=== PATIENT | female | born 1960 | race Caucasian/White ===

== ENCOUNTER 2016-11-30 09:30 | Emergency (ER) | payer BC ==
--- NOTE | 2016-11-30 09:44 | UC ---
UC General HPI - HPI Summary HPI Summary: Patient is here with sudden onset right shoulder pain, hurts to breath, denies any injury or trauma, cannot touch the pain, hx of smoking, is suppose to take bystolic but has not is a while. - History of Current Complaint Stated Complaint: DIZZINESS,RIGHT SHOULDER PAIN,DIFFICULTY BREATHING Time Seen by Provider: 11/30/16 09:38 Hx Obtained From: Patient Onset/Duration: Sudden Onset, Lasting Hours Timing: Constant Onset Severity: Severe Current Severity: Severe - Allergy/Home Medications Allergies/Adverse Reactions: Allergies Allergy/AdvReac Type Severity Reaction Status Date / Time Latex Allergy Itching Verified 11/30/16 09:37 Sulfa Antibiotics Allergy Hives Verified 11/30/16 09:37 Tetracycline Allergy Hives Verified 11/30/16 09:37 PMH/Surg Hx/FS Hx/Imm Hx Previously Healthy: Yes - Surgical History Surgical History: Yes Surgery Procedure, Year, and Place: ectopic , miscarriages - Family History Known Family History: Positive: None, Hypertension - Social History Alcohol Use: None Substance Use Type: Excessive Caffeine Substance Use Comment - Amount & Last Used: a couple pots of coffee daily Smoking Status (MU): Current Every Day Smoker Type: Cigarettes Amount Used/How Often: 1 1/2 PPD Length of Time of Smoking/Using Tobacco: 37 YRS Have You Smoked in the Last Year: Yes Review of Systems Constitutional: Negative Skin: Negative Eyes: Negative ENT: Negative Respiratory: Shortness Of Breath Cardiovascular: Negative Gastrointestinal: Negative Genitourinary: Negative Motor: Negative Neurovascular: Negative Musculoskeletal: Negative Neurological: Other - dizzyness Psychological: Negative Is Patient Immunocompromised?: No All Other Systems Reviewed And Are Negative: Yes Physical Exam Triage Information Reviewed: Yes Appearance: Well-Appearing, Well-Nourished, Pain Distress Vital Signs Reviewed: Yes Eye Exam: Normal ENT Exam: Normal ENT: Positive: Hearing grossly normal, Pharynx normal, TMs normal Dental Exam: Normal Neck exam: Normal Respiratory Exam: Normal Respiratory: Positive: Chest non-tender, Lungs clear, Decreased breath sounds - in right base Cardiovascular Exam: Normal Cardiovascular: Positive: RRR, No Murmur, Pulses Normal Abdominal Exam: Normal Abdomen Description: Positive: Nontender, No Organomegaly, Soft Bowel Sounds: Positive: Present Musculoskeletal Exam: Normal Musculoskeletal: Positive: Strength Intact, ROM Intact, No Edema, Other: - shoulder ROM intact, cannot replicate or palpate pain areas Psychological Exam: Normal Skin Exam: Normal Course/Dx - Course Course Of Treatment: hx obtained, exam performed ,meds reviewed, VS are stable, pain cannot be relicated with movement or palpated, she is complaining of dizzyness and dyspnea, Chest xray ordered, significant for COPD, no acute infection. pain and dizzyness have subsided while waiting for xray, some palpable tenderness over the teres minor, ROM intact. no abdominal tenderness. educated on COPD, patient refused inhalers, I did prescribed some prednisone for her breathing she states she may or maynot take it. refused any pain medication at this time. - Differential Dx - Multi-Symptom Provider Diagnoses: muscle spasm of right teres minor. COPD Discharge - Discharge Plan Condition: Stable Disposition: HOME Prescriptions: predniSONE TAB* [Deltasone TAB*] 40 mg PO DAILY #14 tab Patient Education Materials: Muscle Strain (ED), COPD (Chronic Obstructive Pulmonary Disease) (ED) Referrals: No Primary Care Phys,NOPCP [Primary Care Provider] - Additional Instructions: 1. Warm compresses to the scapular area and tylenol for pain management. 2. You do have COPD and I recommend follow up with a general practitioner to manage the progression. 3. If pain persists or increases please report to ER for further workup.
[2016-11-30 10:06] VITALS: BP 119/64
--- NOTE | 2016-11-30 10:22 | RAD ---
INDICATION: Dizziness. RIGHT shoulder pain. Difficulty breathing. COMPARISON: April 26, 2015 TECHNIQUE: Dual energy PA and routine lateral views of the chest were obtained. REPORT: Elevated lung volumes and both diffuse mild prominence of the interstitial markings and patchy rarefaction of the mid to upper lung zone interstitial markings. No focal pulmonary lesion, compelling alveolar consolidation, pleural effusion, pneumothorax. The heart, pulmonary vasculature, and mediastinal contours are unremarkable. 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 IMPRESSION: Stigmata of obstructive lung disease. No acute pulmonary or cardiac process evident.
== END 2016-11-30 10:37 | disposition home or self-care (01) ==
LOC: UCCORT 09:30
DX: S46.911A Strain of unspecified muscle, fascia and tendon at shoulder and upper arm level, right arm, initial encounter (principal); J44.9 Chronic obstructive pulmonary disease, unspecified; F17.210 Nicotine dependence, cigarettes, uncomplicated; F15.99 Other stimulant use, unspecified with unspecified stimulant-induced disorder; X58.XXXA Exposure to other specified factors, initial encounter; Z91.040 Latex allergy status; Z88.2 Allergy status to sulfonamides; Z88.1 Allergy status to other antibiotic agents
CPT/HCPCS: 71020; 93005; 99212; G0463

== ENCOUNTER 2019-02-24 19:14 | Emergency (ER) | payer BC ==
[2019-02-24 19:29] VITALS: BP 131/84
--- NOTE | 2019-02-24 20:37 | UC ---
Respiratory Complaint HPI - HPI Summary HPI Summary: 58-year-old female who has COPD and a chronic cough. She presents tonight with pain on inspiration on the right side lateral chest. She stated that she wants to check for a clot in her lungs. She is a smoker. She has had a blood clot in her left forearm in the past which she was told was a result of a fractured clavicle. She has a brother who had bilateral pulmonary emboli and he also has factor V. She states she was tested but she never was told results of that. - History of Current Complaint Chief Complaint: UCRespiratory Stated Complaint: PAIN UPPER RIGHT SIDE TO BACK Time Seen by Provider: 02/24/19 19:21 Hx Obtained From: Patient ?: No Onset/Duration: Gradual Onset - Patient has had gradual onset of that over the past few days. Severity Initially: Mild Severity Currently: Mild Pain Intensity: 2 Character: Cough: Nonproductive Alleviating Factors: Nothing Associated Signs And Symptoms: Positive: Dyspnea - Patient states she feels mildly short of breath at times. - Allergies/Home Medications Allergies/Adverse Reactions: Allergies Allergy/AdvReac Type Severity Reaction Status Date / Time MS Latex [Latex] Allergy Itching Verified 02/24/19 19:30 MS Sulfa Antibiotics Allergy Hives Verified 02/24/19 19:30 [Sulfa Antibiotics] MS Tetracycline Allergy Hives Verified 02/24/19 19:30 [Tetracycline] Home Medications: Home Medications Ibuprofen TAB* [Advil TAB*] 200 mg PO SEE INSTRUCTIONS PRN 02/24/19 [History Confirmed 02/24/19] PMH/Surg Hx/FS Hx/Imm Hx Previously Healthy: Yes Cardiovascular History: Hypertension, Other - Palpitations Respiratory History: COPD - Surgical History Surgical History: Yes Surgery Procedure, Year, and Place: ectopic , miscarriages - Family History Known Family History: Positive: None, Hypertension - Social History Alcohol Use: None Substance Use Type: Excessive Caffeine Substance Use Comment - Amount & Last Used: a couple pots of coffee daily Smoking Status (MU): Current Every Day Smoker Type: Cigarettes Amount Used/How Often: 1 1/2 PPD Length of Time of Smoking/Using Tobacco: 37 YRS Have You Smoked in the Last Year: Yes Household Exposure Type: Cigarettes Review of Systems All Other Systems Reviewed And Are Negative: Yes Respiratory: Positive: Shortness Of Breath - Patient states occasionally she has mild shortness of breath, Cough - Chronic cough however states she's had an increased cough over the past few days. Cardiovascular: Positive: Chest Pain - Pain on inspiration to the right lateral chest. Is Patient Immunocompromised?: No Physical Exam Triage Information Reviewed: Yes Appearance: Well-Appearing, No Pain Distress, Well-Nourished Vital Signs: Initial Vital Signs Temp 98.4 F 02/24/19 19:23 Pulse 77 02/24/19 19:23 Resp 18 02/24/19 19:23 BP 131/84 02/24/19 19:23 Pulse Ox 97 02/24/19 19:23 Vital Signs Reviewed: Yes Eyes: Positive: Conjunctiva Clear Respiratory: Positive: Chest non-tender - Chest wall is nontender, Lungs clear, Normal breath sounds, No respiratory distress, No accessory muscle use Cardiovascular: Positive: RRR, No Murmur, Pulses Normal, Brisk Capillary Refill Musculoskeletal Exam: Normal Neurological Exam: Normal Psychological Exam: Normal Skin Exam: Normal Respiratory Course/Dx - Course Course Of Treatment: Chest x-ray: Negative as read by myself and Dr. Valdes With the patient's concern for a possible pulmonary embolus I advised that she should go to the local emergency room for reevaluation and treatment. The patient states that she will go home instead and refuses to go to the emergency room. She chose to sign out AGAINST MEDICAL ADVICE. - Differential Dx/Diagnosis Provider Diagnosis: Chest pain on respiration Discharge ED - Sign-Out/Discharge Documenting (check all that apply): Patient Departure All imaging exams completed and their final reports reviewed: No - Discharge Plan Condition: Good Disposition: HOME-RECOMMEND TO ED Referrals: Carlos Koroma MD [Primary Care Provider] - Additional Instructions: It was recommended to the patient that she should be further evaluated in the local emergency room. She chose to sign out AGAINST MEDICAL ADVICE. - Billing Disposition and Condition Condition: GOOD Disposition: Home-Recommend to ED - Attestation Statements Provider Attestation: This patient was not seen by me. I was available for consult. Chart reviewed. DEWAYNE
--- NOTE | 2019-02-25 14:53 | UC ---
- Progress Note Progress Note: Final radiologist reading of chest x-ray from 2019 is COPD with no acute disease process. Provider interpretation same date is no acute disease process therefore there is no discrepancy Course/Dx - Diagnoses Provider Diagnoses: Chest pain on respiration Discharge ED - Sign-Out/Discharge Documenting (check all that apply): Patient Departure All imaging exams completed and their final reports reviewed: Yes - Discharge Plan Condition: Good Disposition: HOME-RECOMMEND TO ED Referrals: Carlos Koroma MD [Primary Care Provider] - Additional Instructions: It was recommended to the patient that she should be further evaluated in the local emergency room. She chose to sign out AGAINST MEDICAL ADVICE. - Billing Disposition and Condition Condition: GOOD Disposition: Home-Recommend to ED
== END 2019-02-24 20:20 | disposition home health service (06) ==
LOC: UCCORT 19:14
DX: R07.1 Chest pain on breathing (principal); J44.9 Chronic obstructive pulmonary disease, unspecified; I10 Essential (primary) hypertension; R06.02 Shortness of breath; R05 Cough; F17.210 Nicotine dependence, cigarettes, uncomplicated; Z88.0 Allergy status to penicillin; Z88.2 Allergy status to sulfonamides; Z91.040 Latex allergy status
CPT/HCPCS: 71046; 99212; G0463